=== PATIENT | male | born 1955 | race American Indian/Alaskan Native ===

== ENCOUNTER 2017-03-18 08:04 | Outpatient (CLI) | payer OTHER ==
--- NOTE | 2017-03-18 10:25 | Cat Scan Report ---
CT scan of abdomen and pelvis without IV contrast: History: Malignant neoplasm of prostate. Findings: Normal lung bases. No pleural pericardial effusion. Normal liver spleen pancreas and gallbladder. Normal adrenals, kidney parenchyma and bladder. No free intraperitoneal fluid or. No evidence of adenopathy. No bowel distention. No wall thickening. No evidence of appendicitis or diverticulitis. Focal area of increased density seen at the L2 vertebral body , L5 vertebral body and T11 vertebral body could represent metastatic disease. Other possibility would be benign bone lesion. Correlation with bone scan examination may be advised. Impression: No abnormal abdominal findings. Bone changes as detailed above.
--- NOTE | 2017-03-19 09:34 | Nuclear Medicine Report ---
BONE SCAN: History: Malignant neoplasm of prostate. Technique: Anterior and posterior whole body images were obtained 3 hours after injection of 25 mCi of technetium 99m MDP. Findings: Comparison is made to the bone scan dated 05/24/16. Distribution of the radiotracer is physiologic in the renal, bony and soft tissues. There is persistent abnormal uptake in the sixth thoracic vertebra and superior left iliac bone although the intensity of radiotracer uptake appears slightly decreased since the comparison study. Subtle foci of increased uptake in the inferior sternum and mid right iliac bone have resolved since the previous exam. No new bony lesions are detected. IMPRESSION: Mild improvement in the bony lesions are suspected since 05/24/16 exam. A sternal lesion and right iliac lesion have resolved. There is decreased intensity of uptake in the superior right iliac bone and T6. No new areas of disease are appreciated.
== END 2017-03-18 08:05 | disposition home or self-care (01) ==
LOC: CT 08:04
PROVIDERS: ATTEND Urology
DX: C61 Malignant neoplasm of prostate (principal); Z87.891 Personal history of nicotine dependence
CPT/HCPCS: 74176; 78306; A9503